=== PATIENT | female | born 1970 | race Caucasian/White ===

== ENCOUNTER 2019-07-25 16:40 | Emergency (ER) | payer OTHER ==
[~2019-07-25] VITALS: Ht 162.6 cm; Wt 75.0 kg
[2019-07-25 17:14] VITALS: BP 110/74
== END 2019-07-25 18:42 | disposition home or self-care (01) ==
LOC: ED 17:44
DX: S82.62XA Displaced fracture of lateral malleolus of left fibula, initial encounter for closed fracture (principal); X50.1XXA Overexertion from prolonged static or awkward postures, initial encounter; Y93.89 Activity, other specified; Y92.89 Other specified places as the place of occurrence of the external cause; Y99.8 Other external cause status
CPT/HCPCS: 29515; 99284

== ENCOUNTER → 2019-07-31 | Outpatient (CLI) | payer OTHER ==
[2019-07-31 09:34] LABS: BASOPHILS # (AUTO) 0.03 x10^3/uL (0-0.1); BASOPHILS % (AUTO) 1 % (0-1); EOSINOPHILS # (AUTO) 0.05 x10^3/uL (0-0.4); EOSINOPHILS % (AUTO) 1 % (1-7); LYMPHOCYTES # (AUTO) 1.67 x10^3/uL (1-3.4); LYMPHOCYTES % (AUTO) 23 % (22-44); MD NO; MEAN CORPUSCULAR HEMOGLOBIN 30.5 pg (27.0-34.8); MEAN CORPUSCULAR HGB CONC 33.4 g/dL (32.4-35.8); MEAN CORPUSCULAR VOLUME 91.3 fL (80-100); MEAN PLATELET VOLUME 7.1 fL (7.4-10.4); MONOCYTES # (AUTO) 0.51 x10^3/uL (0.2-0.8); MONOCYTES % (AUTO) 7 % (2-9); NEUTROPHILS # (AUTO) 4.88 x10^3/uL (1.8-6.8); NEUTROPHILS % (AUTO) 68 % (42-75); PLATELET COUNT 283 x10^3/uL (130-400); RED BLOOD COUNT 4.77 x10^6/uL (3.82-5.3)
[2019-07-31 09:45] LABS: ALANINE AMINOTRANSFERASE 24 U/L (12-78); ALBUMIN 3.7 g/dL (3.4-5.0); ANION GAP 5 mmol/L (5-15); CALCIUM 9.2 mg/dL (8.5-10.1); CHLORIDE 109 mmol/L (98-107); CHOLESTEROL, TOTAL 167 mg/dL (140-239); TRIGLYCERIDES 73 mg/dL (50-200); VLDL CHOLESTEROL 15 mg/dL (0-25)
[2019-07-31 09:55] LABS: ALKALINE PHOSPHATASE 141 U/L (45-117); BILIRUBIN,TOTAL 0.3 mg/dL (0.2-1.0); CHOL/HDL RATIO 2.9; CREATININE 0.92 mg/dL (0.55-1.02); FREE T4 (FREE THYROXINE) 0.94 ng/dL (0.76-1.46); HDL CHOL % 34 % (28-40); HDL CHOLESTEROL (DIRECT) 57 mg/dL (40-60); LDL CHOLESTEROL,CALCULATED 95 mg/dL (54-169); LDL/HDL RATIO 1.7 (0.5-3.0); TOTAL PROTEIN 7.4 g/dL (6.4-8.2)
== END | disposition home or self-care (01) ==
LOC: LAB 09:22
PROVIDERS: ATTEND Nurse Practitioner Family
DX: Z00.01 Encounter for general adult medical examination with abnormal findings (principal); Z13.220 Encounter for screening for lipoid disorders; S82.832D Other fracture of upper and lower end of left fibula, subsequent encounter for closed fracture with routine healing; G43.109 Migraine with aura, not intractable, without status migrainosus; R06.09 Other forms of dyspnea; R74.8 Abnormal levels of other serum enzymes; X58.XXXD Exposure to other specified factors, subsequent encounter
CPT/HCPCS: 36415; 80053; 80061; 82150; 83690; 84439; 84443; 84481; 85025

== ENCOUNTER → 2019-10-21 | Outpatient (CLI) | payer OTHER | END | disposition home or self-care (01) | LOC: LAB 09:36 | PROVIDERS: ATTEND Internal Medicine | DX: F17.210 Nicotine dependence, cigarettes, uncomplicated (principal) | CPT/HCPCS: 36415; 82103; 82104 ==

== ENCOUNTER 2019-11-30 06:14 | Outpatient (CLI) | payer OTHER ==
[2019-11-30 06:38] LABS: BASOPHILS # (AUTO) 0.04 x10^3/uL (0-0.1); BASOPHILS % (AUTO) 1 % (0-1); EOSINOPHILS # (AUTO) 0.14 x10^3/uL (0-0.4); EOSINOPHILS % (AUTO) 2 % (1-7); LYMPHOCYTES # (AUTO) 2.42 x10^3/uL (1-3.4); LYMPHOCYTES % (AUTO) 33 % (22-44); MD NO; MEAN CORPUSCULAR HEMOGLOBIN 30.1 pg (27.0-34.8); MEAN CORPUSCULAR HGB CONC 32.8 g/dL (32.4-35.8); MEAN PLATELET VOLUME 7.5 fL (7.4-10.4); MONOCYTES # (AUTO) 0.54 x10^3/uL (0.2-0.8); MONOCYTES % (AUTO) 7 % (2-9); NEUTROPHILS # (AUTO) 4.28 x10^3/uL (1.8-6.8); NEUTROPHILS % (AUTO) 58 % (42-75); PLATELET COUNT 246 x10^3/uL (130-400); RED BLOOD COUNT 4.82 x10^6/uL (3.82-5.3); RED CELL DISTRIBUTION WIDTH 14.2 % (9.6-15.2)
[2019-11-30 06:52] LABS: ALANINE AMINOTRANSFERASE 25 U/L (12-78); ALBUMIN 3.7 g/dL (3.4-5.0); ANION GAP 3 mmol/L (5-15); CALCIUM 8.8 mg/dL (8.5-10.1); CHLORIDE 110 mmol/L (98-107); CHOLESTEROL, TOTAL 170 mg/dL (140-239)
[2019-11-30 06:54] LABS: ALKALINE PHOSPHATASE 152 U/L (45-117); BILIRUBIN,TOTAL 0.2 mg/dL (0.2-1.0); HDL CHOL % 33 % (28-40); HDL CHOLESTEROL (DIRECT) 56 mg/dL (40-60); LDL CHOLESTEROL,CALCULATED 99 mg/dL (54-169); LDL/HDL RATIO 1.8 (0.5-3.0); TOTAL PROTEIN 7.4 g/dL (6.4-8.2); TRIGLYCERIDES 74 mg/dL (50-200); VLDL CHOLESTEROL 15 mg/dL (0-25)
== END 2019-11-30 23:59 | disposition home or self-care (01) ==
LOC: LAB 06:14
PROVIDERS: ATTEND Nurse Practitioner Family
DX: G43.109 Migraine with aura, not intractable, without status migrainosus (principal); R06.02 Shortness of breath; R06.09 Other forms of dyspnea; R74.8 Abnormal levels of other serum enzymes; Z72.0 Tobacco use
CPT/HCPCS: 36415; 80053; 80061; 85025

== ENCOUNTER 2019-12-28 16:00 | Outpatient (CLI) | payer OTHER | END 2019-12-28 23:59 | disposition home or self-care (01) | LOC: CFH 16:00 | PROVIDERS: ATTEND Nurse Practitioner Family | DX: R13.10 Dysphagia, unspecified (principal) | CPT/HCPCS: 76536 ==

== ENCOUNTER → 2020-02-25 | Outpatient (CLI) | payer OTHER | END | disposition home or self-care (01) | LOC: CFH 16:01 | PROVIDERS: ATTEND Nurse Practitioner | DX: R10.11 Right upper quadrant pain (principal); Z90.49 Acquired absence of other specified parts of digestive tract | CPT/HCPCS: 76700 ==

== ENCOUNTER 2020-05-10 05:51 | Emergency (ER) | payer OTHER ==
[~2020-05-10] VITALS: Ht 162.6 cm; Wt 80.5 kg
[2020-05-10] MEDS ORDERED: ACETAMINOPHEN 500 MG TABLET PO ONE (06:30)
[2020-05-10] MEDS ORDERED: IBUPROFEN 600 MG TABLET PO ONE (06:30)
[2020-05-10] MEDS ORDERED: ACETAMINOPHEN 500 MG TABLET ONE (06:32)
[2020-05-10] MEDS ORDERED: IBUPROFEN 600 MG TABLET ONE (06:32)
--- NOTE | 2020-05-10 07:39 | NUR ---
Report from Nisha
--- NOTE | 2020-05-10 08:14 | NUR ---
Waiting on influenza result. Pt updated on POC
[2020-05-10 08:20] LABS: RAPID INFLUENZA A Negative (Negative); RAPID INFLUENZA B Negative (Negative)
[2020-05-10 08:29] VITALS: BP 134/81
== END 2020-05-10 08:31 | disposition home or self-care (01) ==
LOC: ED 06:27
DX: B34.9 Viral infection, unspecified (principal); Z20.828 Contact with and (suspected) exposure to other viral communicable diseases; R11.0 Nausea; Z90.49 Acquired absence of other specified parts of digestive tract; Z88.0 Allergy status to penicillin; Z88.2 Allergy status to sulfonamides
CPT/HCPCS: 87400; 87635; 99283

== ENCOUNTER 2020-08-12 13:52 | Emergency (ER) | payer OTHER ==
[~2020-08-12] VITALS: Ht 162.6 cm; Wt 82.0 kg
--- NOTE | 2020-08-12 14:12 | NUR ---
PATIENT AMBULATED TO BATHROOM WITH STEADY GAIT.
--- NOTE | 2020-08-12 14:20 | NUR ---
PATIENT BIB [facility] WITH CHIEF C/O PALPITATIONS X1 MONTH, BUT TODAY WAS WORSE. PATIENT WASN'T "FEELING RIGHT" THIS MORNING AND WENT TO . EKG SHOWED A-FLUTTER/A-FIB. PATIENT ALSO C/O NAUSEA, EKG EN ROUTE SHOWED SR. VSS, NO INTERVENTIONS EN ROUTE. PATIENT REPORTS FEELING DIZZY AND LIGHTHEADED WITH PALPITATION EPISODES, THESE HAVE BEEN HAPPENING INTERMITTENTLY OVER THE LAST MONTH PER PATIENT. NADN, VSS, CALL LIGHT WITHIN REACH.
--- NOTE | 2020-08-12 14:20 | NUR ---
[facility], CONNECTED TO MONITORS. ERMD AT BEDSIDE FOR EVALUATION.
--- NOTE | 2020-08-12 14:36 | NUR ---
X-RAY TECH AT BEDSIDE.
--- NOTE | 2020-08-12 14:54 | NUR ---
22 GAUGE IV STARTED LEFT AC, BLOOD COLLECTED AND SENT TO LAB. URINE SAMPLE COLLECTED AND WALKED TO LAB.
[2020-08-12 15:00] LABS: BASOPHILS % (AUTO) 1 % (0-1); EOSINOPHILS % (AUTO) 1 % (1-7); LYMPHOCYTES % (AUTO) 31 % (22-44); MEAN CORPUSCULAR HEMOGLOBIN 30.4 pg (27.0-34.8); MEAN PLATELET VOLUME 7.4 fL (7.4-10.4); MONOCYTES % (AUTO) 6 % (2-9); NEUTROPHILS % (AUTO) 61 % (42-75); PLATELET COUNT 268 x10^3/uL (130-400); RED BLOOD COUNT 4.67 x10^6/uL (3.82-5.3); RED CELL DISTRIBUTION WIDTH 14.2 % (9.6-15.2)
[2020-08-12 15:01] LABS: MICROSCOPIC NOT IND
[2020-08-12 15:07] LABS: MD NO
[2020-08-12 15:10] LABS: ALANINE AMINOTRANSFERASE 37 U/L (12-78); ALBUMIN 3.9 g/dL (3.4-5.0); ANION GAP 8 mmol/L (5-15); CHLORIDE 106 mmol/L (98-107); CREATININE 0.78 mg/dL (0.55-1.02)
[2020-08-12 15:19] LABS: ALKALINE PHOSPHATASE 163 U/L (45-117); BILIRUBIN,TOTAL 0.3 mg/dL (0.2-1.0); TOTAL PROTEIN 7.5 g/dL (6.4-8.2); TROPONIN I < 0.015 ng/mL (0.000-0.045)
--- NOTE | 2020-08-12 15:27 | NUR ---
PATIENT SITTING IN GURNEY TALKING WITH SPOUSE, NADN, VSS, CALL LIGHT WITHIN REACH. PATIENT UP FOR RECHECK.
--- NOTE | 2020-08-12 16:12 | NUR ---
ERMD AT BEDSIDE TO DISCUSS POC AND DISCHARGE DISPO.
[2020-08-12 16:31] VITALS: BP 100/66
--- NOTE | 2020-08-12 16:32 | NUR ---
Patient given discharge instructions and referral information for cardiology, and they have confirmed that they understand the instructions. Patient stable and ambulatory with steady gait from ED with spouse to private vehicle.
== END 2020-08-12 16:33 | disposition home or self-care (01) ==
LOC: ED 15:44
DX: R00.2 Palpitations (principal); R07.89 Other chest pain; R42 Dizziness and giddiness; F17.200 Nicotine dependence, unspecified, uncomplicated; Z90.49 Acquired absence of other specified parts of digestive tract
CPT/HCPCS: 36415; 71045; 80053; 81003; 83735; 84436; 84443; 84484; 85025; 93005; 99285

== ENCOUNTER 2020-08-18 05:22 | Emergency (ER) | payer OTHER ==
[~2020-08-18] VITALS: Ht 162.6 cm; Wt 81.4 kg
[2020-08-18] MEDS ORDERED: ASPIRIN 81 MG TABLET CHEW ONE (05:41)
[2020-08-18] MEDS ORDERED: ASPIRIN 81 MG TABLET CHEW PO ONE (06:00)
[2020-08-18 06:03] LABS: BASOPHILS % (AUTO) 1 % (0-1); EOSINOPHILS % (AUTO) 2 % (1-7); LYMPHOCYTES % (AUTO) 34 % (22-44); MEAN CORPUSCULAR HEMOGLOBIN 30.6 pg (27.0-34.8); MEAN CORPUSCULAR HGB CONC 33.6 g/dL (32.4-35.8); MEAN PLATELET VOLUME 7.5 fL (7.4-10.4); MONOCYTES % (AUTO) 9 % (2-9); NEUTROPHILS % (AUTO) 55 % (42-75); PLATELET COUNT 238 x10^3/uL (130-400); RED BLOOD COUNT 4.83 x10^6/uL (3.82-5.3); RED CELL DISTRIBUTION WIDTH 14.1 % (9.6-15.2)
[2020-08-18 06:07] LABS: MD NO
[2020-08-18 06:16] LABS: ALANINE AMINOTRANSFERASE 37 U/L (12-78); ALBUMIN 3.8 g/dL (3.4-5.0); ANION GAP 4 mmol/L (5-15); CALCIUM 8.7 mg/dL (8.5-10.1); CHLORIDE 108 mmol/L (98-107); CREATININE 0.82 mg/dL (0.55-1.02)
[2020-08-18 06:21] LABS: ALKALINE PHOSPHATASE 148 U/L (45-117); BILIRUBIN,TOTAL 0.3 mg/dL (0.2-1.0); TOTAL PROTEIN 7.3 g/dL (6.4-8.2); TROPONIN I < 0.015 ng/mL (0.000-0.045)
[2020-08-18 06:58] VITALS: BP 101/60
--- NOTE | 2020-08-18 06:58 | NUR ---
Patient given discharge instructions and they have confirmed that they understand the instructions. Patient ambulatory with steady gait.
== END 2020-08-18 07:00 | disposition home or self-care (01) ==
LOC: ED 06:36
DX: R00.2 Palpitations (principal); F17.200 Nicotine dependence, unspecified, uncomplicated; Z90.49 Acquired absence of other specified parts of digestive tract
CPT/HCPCS: 36415; 71045; 80053; 83735; 84484; 85025; 93005; 99285

== ENCOUNTER → 2020-11-18 | Outpatient (CLI) | payer OTHER | END | disposition home or self-care (01) | LOC: CVU 10:28 | PROVIDERS: ATTEND Registered Nurse | DX: I37.1 Nonrheumatic pulmonary valve insufficiency (principal); R00.0 Tachycardia, unspecified; R07.89 Other chest pain | CPT/HCPCS: 78452; 93017; 93306; A9502 ==

== ENCOUNTER 2021-01-24 13:25 | Emergency (ER) | payer OTHER ==
[~2021-01-24] VITALS: Ht 162.6 cm; Wt 81.1 kg
--- NOTE | 2021-01-24 13:34 | NUR ---
assigner: EKG done in triage
[2021-01-24 14:04] LABS: BASOPHILS % (AUTO) 1 % (0-1); EOSINOPHILS % (AUTO) 1 % (1-7); LYMPHOCYTES % (AUTO) 36 % (22-44); MEAN CORPUSCULAR HGB CONC 32.9 g/dL (32.4-35.8); MEAN PLATELET VOLUME 7.1 fL (7.4-10.4); MONOCYTES % (AUTO) 8 % (2-9); NEUTROPHILS % (AUTO) 54 % (42-75); PLATELET COUNT 281 x10^3/uL (130-400); RED BLOOD COUNT 4.94 x10^6/uL (3.82-5.3); RED CELL DISTRIBUTION WIDTH 13.6 % (9.6-15.2)
[2021-01-24 14:05] VITALS: BP 103/55
[2021-01-24 14:24] LABS: ALBUMIN 3.7 g/dL (3.4-5.0); ANION GAP 4 mmol/L (5-15); CHLORIDE 105 mmol/L (98-107); CREATININE 0.79 mg/dL (0.55-1.02); TROPONIN I < 0.015 ng/mL (0.000-0.045)
[2021-01-24] MEDS ORDERED: ASPIRIN 81 MG TABLET CHEW ONE (14:50)
--- NOTE | 2021-01-24 14:51 | NUR ---
report received from Hortensia DANIELLE, assuming care at this time
[2021-01-24] MEDS ORDERED: ASPIRIN 81 MG TABLET CHEW PO ONE (15:00)
--- NOTE | 2021-01-24 15:19 | NUR ---
pt educated on dc instructions, verbalized understanding. ambulatory to dc desk with steady gait.
== END 2021-01-24 15:23 | disposition home or self-care (01) ==
LOC: ED 15:15
DX: I48.0 Paroxysmal atrial fibrillation (principal); F17.200 Nicotine dependence, unspecified, uncomplicated; Z90.49 Acquired absence of other specified parts of digestive tract; Z88.0 Allergy status to penicillin; Z88.2 Allergy status to sulfonamides
CPT/HCPCS: 36415; 71045; 80048; 82040; 84484; 85025; 93005; 99285

== ENCOUNTER → 2021-02-22 | Outpatient (CLI) | payer OTHER | END | disposition home or self-care (01) | LOC: CFH 15:31 | PROVIDERS: ATTEND Family Medicine | DX: Z12.31 Encounter for screening mammogram for malignant neoplasm of breast (principal) | CPT/HCPCS: 77063; 77067 ==